=== PATIENT | male | born 2000 | race Two or more races ===

== ENCOUNTER 2023-12-06 13:07 | Emergency (ER) | payer OTHER ==
[~2023-12-06] VITALS: Ht 172.7 cm; Wt 70.0 kg
[2023-12-06] MEDS ORDERED: CYCL-837 PO (16:16)
[2023-12-06] MEDS ORDERED: MELO7.5T7 PO (16:16)
[2023-12-06] MEDS: KETOROLAC TROMETH 30 MG/ML 1ML VIAL IM ONE (16:22)
[2023-12-06 16:27] VITALS: BP 184/88; PULSE 105; RESP 18; TEMP 98.1; O2SAT 99
== END 2023-12-06 16:30 | disposition home or self-care (01) ==
LOC: ER 13:07
DX: S00.83XA Contusion of other part of head, initial encounter (principal); V89.2XXA Person injured in unspecified motor-vehicle accident, traffic, initial encounter; Y93.I9 Activity, other involving external motion; Y92.481 Parking lot as the place of occurrence of the external cause; Y99.8 Other external cause status
CPT/HCPCS: 96372; 99283; J1885